=== PATIENT | male | born 1965 | race Caucasian/White ===

== ENCOUNTER 2020-10-03 06:13 | Day surgery (SDC) | payer MEDICAID ==
[~2020-10-03] VITALS: Ht 167.6 cm; Wt 106.9 kg
[2020-10-03] VITALS (8 sets, daily range): BP systolic 121–142; BP diastolic 66–140
[~2020-10-03 06:13] MED LIST: ALBU18HF2 INH; AMLO10TA PO; BUSP10TA11 PO; GABA-534 PO; IBUP-1986 PO; PARO40TA4 PO; PROP40TA72 PO
[2020-10-03] MEDS ORDERED: normal saline 1,000 ML IV SCH (06:40)
[2020-10-03] MEDS ORDERED: diphenhydrAMINE 25mg capsule PO PRN (06:40)
[2020-10-03] MEDS ORDERED: FLO0.4C PO (06:49)
[2020-10-03] MEDS ORDERED: LORA10TA7 PO (06:49)
[2020-10-03] MEDS ORDERED: ATOR40TA72 PO (06:49)
[2020-10-03] MEDS ORDERED: GABA300C PO (06:49)
[2020-10-03] MEDS ORDERED: EZET10TA48 PO (06:49)
[2020-10-03] MEDS ORDERED: NITR0.4T51 SL (06:49)
[2020-10-03] MEDS ORDERED: ASPI-1265 PO (06:51)
[2020-10-03] MEDS ORDERED: PARO25TA3 PO (06:51)
[2020-10-03] MEDS ORDERED: LISI20TA28 PO (06:51)
[2020-10-03 07:26] LABS: BASOPHILS % (AUTO) 0.4 % (0-1); EOSINOPHILS # (AUTO) 0.4 X10'3 (0-0.9); EOSINOPHILS % (AUTO) 4.5 % (0-6); HEMATOCRIT 46.3 % (42.0-52.0); HEMOGLOBIN 15.5 g/dl (14.0-17.9); LYMPHOCYTES # (AUTO) 2.8 X10'3 (1.1-4.8); LYMPHOCYTES % (AUTO) 33.4 % (21-51); MEAN CORPUSCULAR HEMOGLOBIN 30.7 PG (27.0-31.0); MEAN CORPUSCULAR HGB CONC 33.4 g/dL (33.0-36.5); MEAN CORPUSCULAR VOLUME 91.7 FL (78-98); MONOCYTES # (AUTO) 0.6 X10'3 (0-0.9); MONOCYTES % (AUTO) 7.3 % (2-12); NEUTROPHILS # (AUTO) 4.5 X10'3 (1.8-7.7); NEUTROPHILS % (AUTO) 54.4 % (42-75); PLATELET COUNT 186 X10'3 (140-440); RED BLOOD COUNT 5.04 X10'6 (4.70-6.10); RED CELL DISTRIBUTION WIDTH 14.4 % (11.5-14.5); WHITE BLOOD COUNT 8.3 X10'3 (4.5-11.0)
[2020-10-03] MEDS ORDERED: heparin 1,000unit/ml 10ml vial 10 ML ONE (07:32)
[2020-10-03] MEDS ORDERED: midazolam 1 mg/ML 2ml injection ONE ×3 (07:32→09:17)
[2020-10-03] MEDS ORDERED: fentaNYL/PF 50MCG/1 ML 2ML syringe ONE (07:32)
[2020-10-03] MEDS ORDERED: verapamil 2.5 mg/ml inj IV ONE (07:32)
[2020-10-03] MEDS ORDERED: iohexol 350MG/ML 100ml bottle IV ONE (07:32)
[2020-10-03] MEDS ORDERED: iohexol 350 MG/ML 50ML vial IV ONE (07:32)
[2020-10-03] MEDS ORDERED: LIDOcaine 1% (10mg/ml)w/preservative injection 20ml MDV ONE (07:32)
[2020-10-03] MEDS ORDERED: nitroGLYCERIN-Tridil 50MG/D5W 250 ML IV ONE (07:32)
[2020-10-03 07:57] LABS: ALBUMIN 3.8 G/DL (3.4-5.0); ANION GAP 13 (8-16); BLOOD UREA NITROGEN 19 MG/DL (7-18); BUN/CREATININE RATIO 19.2 (5.4-32.0); CALCIUM 8.5 MG/DL (8.5-10.1); CHLORIDE 106 MMOL/L (99-107); CREATININE 0.99 MG/DL (0.60-1.10); GLUCOSE 110 MG/DL (70-104); MAGNESIUM 2.1 MG/DL (1.5-2.4); POTASSIUM 3.5 MMOL/L (3.5-5.1); SODIUM 144 MMOL/L (135-145); TOTAL CARBON DIOXIDE 24.9 MMOL/L (24-32); eGFR 78 ML/MIN
[2020-10-03] MEDS ORDERED: proCHLORperazine 10 MG/2 ml inj IV PRN (10:45)
[2020-10-03] MEDS ORDERED: HYDROcodone/acetaminophen 5mg/325mg tablet PO PRN (10:45)
[2020-10-03] MEDS ORDERED: HYDROcodone/acetaminophen 10/325mg tab PO PRN (10:45)
[2020-10-03] MEDS ORDERED: acetaminophen 325mg tablet PO PRN (10:45)
[2020-10-03] MEDS ORDERED: ondansetron/PF 4mg/2ml inj IV PRN (10:45)
== END 2020-10-03 13:05 | disposition home or self-care (01) ==
LOC: SSTAY O 06:13
PROVIDERS: ATTEND Internal Medicine Cardiovascular Disease
DX: R94.39 Abnormal result of other cardiovascular function study (principal); R07.89 Other chest pain; I20.9 Angina pectoris, unspecified; E78.5 Hyperlipidemia, unspecified; I10 Essential (primary) hypertension; G47.30 Sleep apnea, unspecified; E66.9 Obesity, unspecified; Z68.38 Body mass index [BMI] 38.0-38.9, adult; F17.210 Nicotine dependence, cigarettes, uncomplicated; Z79.899 Other long term (current) drug therapy; Z79.82 Long term (current) use of aspirin
CPT/HCPCS: 36415; 80048; 83735; 85025; 85610; 93005; 93458; 99152; 99153; C1769; C1894; J1644; J2001; J2250; J3010; J7030; Q0163; Q9967; A4620; A6258; J3490